=== PATIENT | male | born 1980 | race Caucasian/White ===

== ENCOUNTER 2017-11-28 02:50 | Emergency (ER) | payer MEDICARE ==
[~2017-11-28] VITALS: Ht 180.3 cm; Wt 103.6 kg
[2017-11-28] MEDS ORDERED: NASAL DECONGEST30 MG PO (04:44)
[2017-11-28] MEDS ORDERED: MOTRIN800 MG PO (04:44)
[2017-11-28 06:15] VITALS: BP 130/60
== END 2017-11-28 06:16 | disposition home or self-care (01) ==
LOC: EME 02:50
DX: J11.1 Influenza due to unidentified influenza virus with other respiratory manifestations (principal); Z88.5 Allergy status to narcotic agent; F17.200 Nicotine dependence, unspecified, uncomplicated
CPT/HCPCS: 71046; 99281; 99284

== ENCOUNTER 2018-03-07 11:29 | Inpatient (IN) | payer MEDICARE ==
[~2018-03-07] VITALS: Ht 180.3 cm; Wt 105.0 kg
[~2018-03-07 11:29] MED LIST: MOTRIN800 MG PO; NASAL DECONGEST30 MG PO
[2018-03-07 11:51] LABS: HEMATOCRIT 46.6 % (38.0-50.0); HEMOGLOBIN 16.5 G/DL (12.5-16.6); MCH 32.2 PG (29.0-34.0); MCHC 35.4 G/DL (30.0-36.0); MCV 90.8 FL (86-99); PLATELET COUNT 185 K/uL (156-360); RBC DIS.WIDTH-CV 12.1 % (11.8-14.6); RBC DIS.WIDTH-SD 40.5 % (39-53); RED BLOOD COUNT 5.13 M/uL (4.00-5.50); WHITE BLOOD COUNT 12.5 K/uL (4.1-10.2)
[2018-03-07 12:04] LABS: ALBUMIN 4.4 g/dL (3.2-4.8)
[2018-03-07 12:05] LABS: CHLORIDE 104 mEq/L (99-109); POTASSIUM 4.5 mEq/L (3.7-5.4); SODIUM 141 mEq/L (136-147)
[2018-03-07 12:07] LABS: GLUCOSE 101 mg/dL (70-99); TOTAL PROTEIN 7.6 g/dL (6.4-8.3)
[2018-03-07 12:09] LABS: TOTAL BILIRUBIN 0.9 mg/dL (0.0-1.0)
[2018-03-07 12:10] LABS: ALKALINE PHOSPHATASE 76 IU/L (3-129)
[2018-03-07 12:11] LABS: GFR ESTIMATE (CALCULATED) > 59 mL/min/ (58.99-99999)
[2018-03-07 12:12] LABS: AST (GOT) 23 IU/L (2-34); UREA NITROGEN (BUN) 13 mg/dL (9-23)
[2018-03-07 12:13] LABS: ALT (GPT) 34 IU/L (3-49)
[2018-03-07 13:06] LABS: APPEARANCE CLEAR ((CLEAR)); BILIRUBIN NEGATIVE; BLOOD NEGATIVE; COLOR AMBER ((YELLOW)); GLUCOSE (STRIP) NEGATIVE; KETONES NEGATIVE; LEUKOCYTES NEGATIVE; NITRITE NEGATIVE; PROTEIN (STRIP) 30; SPECIFIC GRAVITY 1.025 (1.000-1.030); UCUL ADDED? NO
[2018-03-07 13:36] LABS: SERUM ETHYL ALCOHOL < 10 mg/dL
[2018-03-07 13:40] LABS: LIPASE 5 U/L (1.0-51.0)
[2018-03-07 15:04] LABS: PTT 29.3 SEC (25-37)
[2018-03-07] MEDS ORDERED: ADVIL200 MG PO (15:49)
[2018-03-07 18:32] VITALS: BP 117/68
[2018-03-07 20:00] VITALS: BP 121/62
[2018-03-07 20:36] VITALS: BP 124/55
[2018-03-08 06:01] LABS: CHLORIDE 106 MEQ/L (99-109); GFR ESTIMATE (CALCULATED) > 59 mL/min/ (58.99-99999); GLUCOSE 86 mg/dL (70-99); POTASSIUM 4.3 MEQ/L (3.7-5.4); SODIUM 138 MEQ/L (136-147); UREA NITROGEN (BUN) 14 mg/dL (9-23)
[2018-03-08 07:54] VITALS: BP 121/66
[2018-03-08 10:41] LABS: BASOPHIL (%) 0.2 % (0-1); EOSINOPHIL (%) 0.7 % (0-5); EOSINOPHIL COUNT 0.1 K/uL (0-0.3); HEMOGLOBIN 14.9 G/DL (12.5-16.6); IMMATURE GRANULOCYTE (%) 0.7 % (0.0-0.7); LYMPHOCYTE (%) 12.5 % (15-42); LYMPHOCYTE COUNT 2.4 K/uL (1.0-2.8); MCH 30.6 PG (29.0-34.0); MCHC 33.1 G/DL (30.0-36.0); MCV 92.4 FL (86-99); NEUTROPHIL (%) 80.9 % (45-76); NEUTROPHIL COUNT 15.6 K/uL (1.8-6.4); PLATELET COUNT 172 K/uL (156-360); RBC DIS.WIDTH-CV 12.5 % (11.8-14.6); RBC DIS.WIDTH-SD 42.5 % (39-53); RED BLOOD COUNT 4.87 M/uL (4.00-5.50); WHITE BLOOD COUNT 19.2 K/uL (4.1-10.2)
[2018-03-08 16:21] VITALS: BP 136/68
[2018-03-09 00:40] VITALS: BP 115/76
[2018-03-09 07:37] VITALS: BP 132/79
[2018-03-09 07:42] LABS: CHLORIDE 104 MEQ/L (99-109); CREATININE 0.9 MG/DL (0.6-1.3); GFR ESTIMATE (CALCULATED) > 59 mL/min/ (58.99-99999); GLUCOSE 77 mg/dL (70-99); SODIUM 136 MEQ/L (136-147); UREA NITROGEN (BUN) 14 mg/dL (9-23)
[2018-03-09 07:44] LABS: HEMATOCRIT 38.1 % (38.0-50.0); MCH 31.3 PG (29.0-34.0); MCHC 33.9 G/DL (30.0-36.0); MCV 92.5 FL (86-99); PLATELET COUNT 153 K/uL (156-360); RBC DIS.WIDTH-CV 12.5 % (11.8-14.6); RBC DIS.WIDTH-SD 42.7 % (39-53); RED BLOOD COUNT 4.12 M/uL (4.00-5.50); WHITE BLOOD COUNT 15.6 K/uL (4.1-10.2)
[2018-03-09 07:50] LABS: HEMOGLOBIN 12.9 G/DL (12.5-16.6)
[2018-03-09 09:18] LABS: ALBUMIN 3.4 G/DL (3.2-4.8); ALKALINE PHOSPHATASE 70 IU/L (3-129); ALT (GPT) 15 IU/L (3-49); AST (GOT) 14 IU/L (2-34); DIRECT BILIRUBIN 0.3 mg/dL (0.0-0.3); TOTAL BILIRUBIN 1.7 MG/DL (0.0-1.0); TOTAL PROTEIN 5.9 G/DL (6.4-8.3)
[2018-03-09 09:48] LABS: BASOPHIL (%) 0.2 % (0-1); EOSINOPHIL (%) 0.6 % (0-5); EOSINOPHIL COUNT 0.1 K/uL (0-0.3); HEMATOCRIT 39.8 % (38.0-50.0); HEMOGLOBIN 13.1 G/DL (12.5-16.6); IMMATURE GRANULOCYTE (%) 0.6 % (0.0-0.7); LYMPHOCYTE (%) 9.5 % (15-42); LYMPHOCYTE COUNT 1.5 K/uL (1.0-2.8); MCH 30.6 PG (29.0-34.0); MCHC 32.9 G/DL (30.0-36.0); MONOCYTE (%) 6.1 % (3-12); NEUTROPHIL COUNT 13.2 K/uL (1.8-6.4); PLATELET COUNT 149 K/uL (156-360); RBC DIS.WIDTH-CV 12.3 % (11.8-14.6); RBC DIS.WIDTH-SD 42.3 % (39-53); RED BLOOD COUNT 4.28 M/uL (4.00-5.50); WHITE BLOOD COUNT 15.8 K/uL (4.1-10.2)
[2018-03-09 19:33] VITALS: BP 110/63
[2018-03-09 23:17] VITALS: BP 119/64
[2018-03-10 03:56] VITALS: BP 111/68
[2018-03-10 06:20] LABS: HEMOGLOBIN 13.3 G/DL (12.5-16.6); MCHC 33.3 G/DL (30.0-36.0); MCV 93.2 FL (86-99); PLATELET COUNT 170 K/uL (156-360); RBC DIS.WIDTH-CV 12.4 % (11.8-14.6); RBC DIS.WIDTH-SD 42.6 % (39-53); RED BLOOD COUNT 4.29 M/uL (4.00-5.50); WHITE BLOOD COUNT 14.5 K/uL (4.1-10.2)
[2018-03-10 06:56] LABS: CHLORIDE 103 MEQ/L (99-109); CREATININE 0.8 MG/DL (0.6-1.3); GFR ESTIMATE (CALCULATED) > 59 mL/min/ (58.99-99999); POTASSIUM 4.6 MEQ/L (3.7-5.4); SODIUM 137 MEQ/L (136-147); UREA NITROGEN (BUN) 8 mg/dL (9-23)
[2018-03-10 06:58] LABS: GLUCOSE 140 mg/dL (70-99)
[2018-03-10 08:11] VITALS: BP 129/66
[2018-03-10 08:13] VITALS: BP 129/66
[2018-03-10 11:32] VITALS: BP 114/60
[2018-03-10 16:25] VITALS: BP 128/79
[2018-03-10 23:30] VITALS: BP 111/64
[2018-03-11 03:30] VITALS: BP 121/70
[2018-03-11 05:52] LABS: BASOPHIL (%) 0.3 % (0-1); EOSINOPHIL (%) 1.9 % (0-5); EOSINOPHIL COUNT 0.1 K/uL (0-0.3); IMMATURE GRANULOCYTE (%) 0.4 % (0.0-0.7); LYMPHOCYTE (%) 24.9 % (15-42); LYMPHOCYTE COUNT 1.9 K/uL (1.0-2.8); MCH 30.5 PG (29.0-34.0); MCHC 32.4 G/DL (30.0-36.0); MCV 93.9 FL (86-99); MONOCYTE (%) 11.5 % (3-12); MONOCYTE COUNT 0.9 K/uL (0-0.8); NEUTROPHIL COUNT 4.6 K/uL (1.8-6.4); PLATELET COUNT 195 K/uL (156-360); RBC DIS.WIDTH-CV 12.3 % (11.8-14.6); RBC DIS.WIDTH-SD 42.7 % (39-53); RED BLOOD COUNT 3.94 M/uL (4.00-5.50); WHITE BLOOD COUNT 7.5 K/uL (4.1-10.2)
[2018-03-11 06:18] LABS: CHLORIDE 104 MEQ/L (99-109); CREATININE 0.8 MG/DL (0.6-1.3); GFR ESTIMATE (CALCULATED) > 59 mL/min/ (58.99-99999); GLUCOSE 108 mg/dL (70-99); POTASSIUM 4.6 MEQ/L (3.7-5.4); SODIUM 141 MEQ/L (136-147); UREA NITROGEN (BUN) 8 mg/dL (9-23)
[2018-03-11 07:19] VITALS: BP 121/58
[2018-03-11 11:52] VITALS: BP 115/59
[2018-03-11 16:19] VITALS: BP 117/74
[2018-03-11 19:31] VITALS: BP 132/79
[2018-03-12] VITALS: BP 122/71
[2018-03-12 00:18] VITALS: BP 122/71
[2018-03-12 04:18] VITALS: BP 122/61
[2018-03-12 05:49] LABS: HEMATOCRIT 38.2 % (38.0-50.0); HEMOGLOBIN 12.7 G/DL (12.5-16.6); MCH 30.5 PG (29.0-34.0); MCHC 33.2 G/DL (30.0-36.0); MCV 91.6 FL (86-99); PLATELET COUNT 210 K/uL (156-360); RBC DIS.WIDTH-CV 12.3 % (11.8-14.6); RBC DIS.WIDTH-SD 42.1 % (39-53); RED BLOOD COUNT 4.17 M/uL (4.00-5.50); WHITE BLOOD COUNT 6.8 K/uL (4.1-10.2)
[2018-03-12 06:18] LABS: CHLORIDE 105 MEQ/L (99-109); CREATININE 0.9 MG/DL (0.6-1.3); GFR ESTIMATE (CALCULATED) > 59 mL/min/ (58.99-99999); GLUCOSE 94 mg/dL (70-99); POTASSIUM 3.8 MEQ/L (3.7-5.4); SODIUM 139 MEQ/L (136-147); UREA NITROGEN (BUN) 9 mg/dL (9-23)
[2018-03-12 06:26] LABS: BASOPHIL (%) 0.4 % (0-1); EOSINOPHIL (%) 3.8 % (0-5); EOSINOPHIL COUNT 0.3 K/uL (0-0.3); IMMATURE GRANULOCYTE (%) 0.1 % (0.0-0.7); LYMPHOCYTE (%) 34.5 % (15-42); LYMPHOCYTE COUNT 2.3 K/uL (1.0-2.8); MONOCYTE (%) 12.5 % (3-12); MONOCYTE COUNT 0.9 K/uL (0-0.8); NEUTROPHIL (%) 48.7 % (45-76); NEUTROPHIL COUNT 3.3 K/uL (1.8-6.4); PLAT.SUFFICIENCY ADEQUATE
[2018-03-12 07:15] VITALS: BP 122/89
[2018-03-12 11:00] VITALS: BP 142/87
[2018-03-12 15:00] VITALS: BP 137/76
[2018-03-13 01:34] VITALS: BP 132/81
[2018-03-13 06:02] LABS: HEMATOCRIT 38.7 % (38.0-50.0); HEMOGLOBIN 13.4 G/DL (12.5-16.6); MCH 31.5 PG (29.0-34.0); MCHC 34.6 G/DL (30.0-36.0); MCV 90.8 FL (86-99); PLATELET COUNT 237 K/uL (156-360); RBC DIS.WIDTH-CV 12.1 % (11.8-14.6); RBC DIS.WIDTH-SD 39.9 % (39-53); RED BLOOD COUNT 4.26 M/uL (4.00-5.50); WHITE BLOOD COUNT 6.7 K/uL (4.1-10.2)
[2018-03-13 06:27] LABS: CHLORIDE 103 MEQ/L (99-109); CREATININE 0.9 MG/DL (0.6-1.3); GFR ESTIMATE (CALCULATED) > 59 mL/min/ (58.99-99999); GLUCOSE 95 mg/dL (70-99); POTASSIUM 3.9 MEQ/L (3.7-5.4); SODIUM 140 MEQ/L (136-147); UREA NITROGEN (BUN) 8 mg/dL (9-23)
[2018-03-13 06:32] LABS: ANISOCYTOSIS 1+; BASOPHIL (%) 0.6 % (0-1); EOSINOPHIL (%) 4.8 % (0-5); EOSINOPHIL COUNT 0.3 K/uL (0-0.3); IMMATURE GRANULOCYTE (%) 0.5 % (0.0-0.7); LYMPHOCYTE (%) 31.4 % (15-42); LYMPHOCYTE COUNT 2.1 K/uL (1.0-2.8); MICROCYTOSIS 1+; MONOCYTE (%) 10.5 % (3-12); MONOCYTE COUNT 0.7 K/uL (0-0.8); NEUTROPHIL (%) 52.2 % (45-76); NEUTROPHIL COUNT 3.5 K/uL (1.8-6.4)
[2018-03-13 08:13] VITALS: BP 126/83
[2018-03-13] MEDS ORDERED: HYDROMORPHONE HC2 MG PO (09:09)
[2018-03-13] MEDS ORDERED: CIPRO750 MG PO (09:20)
[2018-03-13 15:40] VITALS: BP 129/84
[2018-03-14 00:13] VITALS: BP 111/63
[2018-03-14 06:16] LABS: HEMATOCRIT 39.4 % (38.0-50.0); HEMOGLOBIN 13.4 G/DL (12.5-16.6); MCH 30.5 PG (29.0-34.0); MCV 89.5 FL (86-99); PLATELET COUNT 256 K/uL (156-360); RBC DIS.WIDTH-CV 11.9 % (11.8-14.6); RBC DIS.WIDTH-SD 39.5 % (39-53); WHITE BLOOD COUNT 7.3 K/uL (4.1-10.2)
[2018-03-14 06:28] LABS: CHLORIDE 104 MEQ/L (99-109); CREATININE 0.8 MG/DL (0.6-1.3); GFR ESTIMATE (CALCULATED) > 59 mL/min/ (58.99-99999); GLUCOSE 84 mg/dL (70-99); POTASSIUM 3.8 MEQ/L (3.7-5.4); SODIUM 138 MEQ/L (136-147); UREA NITROGEN (BUN) 8 mg/dL (9-23)
[2018-03-14 06:47] LABS: ABS NEUTROPHIL COUNT 3.7; ATYPICAL LYMPHOCYTE 4.3 %; BASOPHILS 0.9 %; EOSINOPHIL ABS CT 0.1; EOSINOPHILS 1.7 % (0-5.0); GIANT PLATELETS 1+; LYMPHOCYTES 32.2 % (15.0-45.0); MONOCYTES 9.6 % (0-9.0); PLAT.SUFFICIENCY ADEQUATE; SEG.NEUTROPHILS 51.3 % (46.0-76.0)
[2018-03-14 06:55] VITALS: BP 128/66
[2018-03-18] MEDS ORDERED: PEN-VEE K,VEET500 MG PO (08:03)
== END 2018-03-14 12:10 | disposition home or self-care (01) | DRG 341 ==
LOC: EME 11:29 → 5EAST 16:08 → EDOF 16:08 → ENRESERV 16:10 → 5EAST 18:13
PROVIDERS: Emergency Medicine; Hospitalist; Physician Assistant; Surgery
DX: K57.20 Diverticulitis of large intestine with perforation and abscess without bleeding (principal); A41.9 Sepsis, unspecified organism; B37.89 Other sites of candidiasis; K35.80 Unspecified acute appendicitis; B96.89 Other specified bacterial agents as the cause of diseases classified elsewhere; F12.90 Cannabis use, unspecified, uncomplicated; B96.20 Unspecified Escherichia coli [E. coli] as the cause of diseases classified elsewhere; E66.3 Overweight; F17.210 Nicotine dependence, cigarettes, uncomplicated; K52.9 Noninfective gastroenteritis and colitis, unspecified; Z88.5 Allergy status to narcotic agent; Z68.32 Body mass index [BMI] 32.0-32.9, adult
CPT/HCPCS: 74177; 76937; 80048; 80048 91; 80053; 80076; 81003; 82272; 83605; 83630; 83690; 85025; 85027; 85610; 85730; 87040; 87070; 87075; 87076; 87077; 87106; 87185; 87186; 87205; 87493; 87506; 88304; 94799; 99281; 99285; C1751; C1894; C9113; G0480; J0131; J0692; J1100; J1170; J1200; J1450; J1650; J1885; J2250; J2405; J2543; J2710; J3010; J7030; J7050; J7120; J7643; S0074